=== PATIENT | male | born 1990 | race American Indian/Alaskan Native ===

== ENCOUNTER 2017-03-26 14:50 | Emergency (ER) | payer OTHER ==
[2017-03-26 15:08] VITALS: BP 121/72
[2017-03-26] MEDS ORDERED: MOTRIN PO ONE (16:09)
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
== END 2017-03-26 17:46 | disposition home or self-care (01) ==
LOC: ED 14:50
DX: S16.1XXA Strain of muscle, fascia and tendon at neck level, initial encounter (principal); S13.4XXA Sprain of ligaments of cervical spine, initial encounter; V89.2XXA Person injured in unspecified motor-vehicle accident, traffic, initial encounter; Y93.89 Activity, other specified; Y92.89 Other specified places as the place of occurrence of the external cause; Y99.8 Other external cause status
CPT/HCPCS: 72125; 99283